=== PATIENT | male | born 1985 ===

== ENCOUNTER 2020-09-11 12:52 | Emergency (ER) | payer OTHER ==
[~2020-09-11] VITALS: Ht 170.2 cm; Wt 68.2 kg
[2020-09-11 13:24] VITALS: BP 122/74
== END 2020-09-11 15:44 | disposition home or self-care (01) ==
LOC: ER 12:53
DX: Z00.00 Encounter for general adult medical examination without abnormal findings (principal)
CPT/HCPCS: 99281